=== PATIENT | male | born 1930 | race Hispanic/Latino ===

== ENCOUNTER 2020-11-03 00:45 | Inpatient (IN) | payer OTHER ==
[2020-11-03] MEDS ORDERED: ACETAMINOPHEN 325 MG TABLET ONE (02:03)
[2020-11-03 02:08] LABS: Absolute Lymphocytes (CBC) 0.6 K/uL (0.7-4.9); Basophils % 0.4 % (0-1.3); Hematocrit 37.6 % (39.6-49.0); Lymphocytes % 5.4 % (15.3-44.8); MPV 7.8 fL (7.6-11.3)
[2020-11-03 02:11] LABS: Protime INR 1.34
[2020-11-03 02:43] LABS: ALT/SGPT 22 U/L (12-78); AST/SGOT 14 U/L (15-37); Alkaline Phosphatase 88 U/L (45-117); BUN Blood Urea Nitrogen 22 mg/dL (7-18); Bicarbonate 23 mmol/L (21-32); Bilirubin Direct 0.3 mg/dL (0-0.2); Bilirubin Total 1.3 mg/dL (0.2-1.0); Glucose Level 133 mg/dL (74-106); Magnesium 2.1 mg/dL (1.8-2.4); NT PRO-BNP 247 pg/mL (<450); Potassium 3.9 mmol/L (3.5-5.1); Protein, Total 6.8 g/dL (6.4-8.2); Sodium Level 138 mmol/L (136-145); Troponin (Emerg Dept Use Only) 0.02 ng/mL (0.0-0.045)
--- NOTE | 2020-11-03 02:52 | ER ---
Nurse's Notes [facility] Name: Angel Romero Age: 89 yrs Sex: Male : 1930 Arrival Date: 11/03/2020 Time: 00:51 Bed 5 Private MD: Diagnosis: Fever, unspecified;Altered Mental Status;Urinary tract infection, site not specified Presentation: 11/03 00:15 Initial Sepsis Screen: Does the patient meet any 2 criteria? No. Patient's initial bb sepsis screen is negative. Does the patient have a suspected source of infection? Yes: Dysuria/Frequency/Urgency/UTI. Risk Assessment: Do you want to hurt yourself or someone else? Patient reports no desire to harm self or others. Onset of symptoms was November 02, 2020. 00:15 Acuity: LIZ 2 bb 01:15 Chief complaint: Patient's son or daughter states: pt went to the dentist at approx bb 1430 yesterday but at around 1700 they realized he was missing and pt was found driving up highway and was in [place]. Family states pt has not had this type of episode in the past. Coronavirus screen: At this time, the client does not indicate any symptoms associated with coronavirus-19. Ebola Screen: No symptoms or risks identified at this time. 01:15 Method Of Arrival: Ambulatory bb Historical: - Allergies: 01:27 No Known Allergies; bb - Home Meds: 01:27 eye drops for IOP [Active]; antibiotics for UTI [Active]; bb - PMHx: 01:27 None; bb - Immunization history:: Adult Immunizations up to date. - Social history:: Smoking status: Patient denies any tobacco usage or history of. Screenin:39 Abuse screen: Denies threats or abuse. Nutritional screening: No deficits noted. ea Tuberculosis screening: No symptoms or risk factors identified. Fall Risk None identified. Assessment: 01:39 General: Appears in no apparent distress. Behavior is calm, cooperative, appropriate ea for age. Pain: Denies pain. Neuro: Level of Consciousness is awake, alert, obeys commands, Oriented to person, place, situation. Cardiovascular: Patient's skin is warm and dry. Respiratory: Airway is patent Respiratory effort is even, unlabored, Respiratory pattern is regular, symmetrical. GI: Abdomen is non-distended. Derm: Skin is pink, warm \T\ dry. 02:38 Reassessment: Patient and/or family updated on plan of care and expected duration. Pain ea level reassessed. Patient is alert, oriented x 3, equal unlabored respirations, skin warm/dry/pink. 03:39 Reassessment: Patient and/or family updated on plan of care and expected duration. Pain ea level reassessed. Patient is alert, oriented x 3, equal unlabored respirations, skin warm/dry/pink. Report given to receiving nurse on second floor. Pt admitted to second floor. Pt left ED via wheelchair per ED nurse. Pt tolerating well. Accompanied by family. Vital Signs: 00:15 BP 141 / 56; Pulse 91; Resp 16 S; Temp 100.5(O); Pulse Ox 95% on R/A; Weight 95.25 kg bb (R); Height 5 ft. 7 in. (170.18 cm) (R); Pain 0/10; 02:38 BP 130 / 63; Pulse 88; Resp 18 S; Pulse Ox 96% on R/A; ad5 00:15 Body Mass Index 32.89 (95.25 kg, 170.18 cm) bb ED Course: 00:51 Patient arrived in ED. bp1 01:09 Peña Arguello MD is Attending Physician. mh7 01:15 Arm band placed on Patient placed in an exam room, on a stretcher, on pulse oximetry. bb Family accompanied patient. 01:27 Triage completed. bb 01:28 Patient has correct armband on for positive identification. Bed in low position. Call ea light in reach. Side rails up X2. 01:30 Inserted saline lock: 20 gauge in right wrist, using aseptic technique. Blood collected.ea 01:39 Rosemarie Mccall, DARLENE is Primary Nurse. ea 02:02 CT Head Brain wo Cont Sent. ad5 02:51 John Borrego MD is Hospitalizing Provider. mh7 03:11 Hospitalizing Provider role handed off by John Borrego MD mh7 03:11 Denny Mondragon MD is Hospitalizing Provider. mh7 03:29 No provider procedures requiring assistance completed. Patient admitted, IV remains in ea place. Administered Medications: 01:50 Drug: Tylenol 650 mg Route: PO; ad5 02:36 Follow up: Response: No adverse reaction ea 03:38 Drug: Rocephin (cefTRIAXone) 1 grams Route: IV; Rate: per protocol; Site: right wrist; ea 03:40 Follow up: Response: No adverse reaction; IV Status: Completed infusion ea Outcome: 02:51 Decision to Hospitalize by Provider. martina 03:29 Admitted to Med/surg accompanied by tech, via wheelchair, room 202, with chart, Report ea called to Diego COLON 03:29 Condition: stable 03:29 Instructed on the need for admit. 03:40 Patient left the ED. ea Signatures: Whit Verduzco RN RN Rosemarie Devries RN RN Nadya Elizabeth Maurice, MD MD [facility] Ramon Husain ad5
--- NOTE | 2020-11-03 02:52 | EDPHYS ---
Physician Documentation [facility] Name: Angel Romero Age: 89 yrs Sex: Male : 1930 Arrival Date: 11/03/2020 Time: 00:51 Bed 5 Private MD: ED Physician Peña Arguello HPI: 11/03 02:01 This 89 yrs old Male presents to ER via Ambulatory with complaints of Altered mh7 Mental Status. 02:01 The patient presents with confusion. Onset: The symptoms/episode began/occurred mh7 yesterday. Possible causes: unknown. 02:02 Associated signs and symptoms: Pertinent positives: confusion, Pertinent negatives: mh7 abdominal pain, agitation, ataxia, blurred vision, chest pain, combativeness, diaphoresis, diarrhea, dizziness, headache, lightheadedness, nausea, numbness, palpitations, seizure, shortness of breath, tingling, vertigo, vomiting, weakness. Current symptoms: In the emergency department the patient's symptoms have resolved, the patient is alert and fully oriented, has normal speech, has normal responsiveness, has no confusion. Patient's baseline: Neuro: alert and fully oriented, Motor: no deficits, Ambulation: walks without assistance, Speech: normal. Historical: - Allergies: 01:27 No Known Allergies; bb - Home Meds: :27 eye drops for IOP [Active]; antibiotics for UTI [Active]; bb - PMHx: 01:27 None; bb - Immunization history:: Adult Immunizations up to date. - Social history:: Smoking status: Patient denies any tobacco usage or history of. ROS: 02:02 Constitutional: Negative for fever, chills, and weight loss, Eyes: Negative for injury, mh7 pain, redness, and discharge, ENT: Negative for injury, pain, and discharge, Neck: Negative for injury, pain, and swelling, Cardiovascular: Negative for chest pain, palpitations, and edema, Respiratory: Negative for shortness of breath, cough, wheezing, and pleuritic chest pain, Abdomen/GI: Negative for abdominal pain, nausea, vomiting, diarrhea, and constipation, Back: Negative for injury and pain, : Negative for injury, bleeding, discharge, and swelling, MS/Extremity: Negative for injury and deformity, Skin: Negative for injury, rash, and discoloration, Neuro: Negative for headache, weakness, numbness, tingling, and seizure, Psych: Negative for depression, anxiety, suicide ideation, homicidal ideation, and hallucinations, Allergy/Immunology: Negative for hives, rash, and allergies, Endocrine: Negative for neck swelling, polydipsia, polyuria, polyphagia, and marked weight changes, Hematologic/Lymphatic: Negative for swollen nodes, abnormal bleeding, and unusual bruising. Exam: 02:02 Constitutional: This is a well developed, well nourished patient who is awake, alert, mh7 and in no acute distress. Head/Face: Normocephalic, atraumatic. Eyes: Pupils equal round and reactive to light, extra-ocular motions intact. Lids and lashes normal. Conjunctiva and sclera are non-icteric and not injected. Cornea within normal limits. Periorbital areas with no swelling, redness, or edema. Neck: Trachea midline, no thyromegaly or masses palpated, and no cervical lymphadenopathy. Supple, full range of motion without nuchal rigidity, or vertebral point tenderness. No Meningismus. Chest/axilla: Normal chest wall appearance and motion. Nontender with no deformity. No lesions are appreciated. Cardiovascular: Regular rate and rhythm with a normal S1 and S2. No gallops, murmurs, or rubs. Normal PMI, no JVD. No pulse deficits. Respiratory: Lungs have equal breath sounds bilaterally, clear to auscultation and percussion. No rales, rhonchi or wheezes noted. No increased work of breathing, no retractions or nasal flaring. Abdomen/GI: Soft, non-tender, with normal bowel sounds. No distension or tympany. No guarding or rebound. No evidence of tenderness throughout. Back: No spinal tenderness. No costovertebral tenderness. Full range of motion. Skin: Warm, dry with normal turgor. Normal color with no rashes, no lesions, and no evidence of cellulitis. MS/ Extremity: Pulses equal, no cyanosis. Neurovascular intact. Full, normal range of motion. Neuro: Awake and alert, GCS 15, oriented to person, place, time, and situation. Cranial nerves II-XII grossly intact. Motor strength 5/5 in all extremities. Sensory grossly intact. Cerebellar exam normal. Normal gait. Psych: Awake, alert, with orientation to person, place and time. Behavior, mood, and affect are within normal limits. Vital Signs: 00:15 BP 141 / 56; Pulse 91; Resp 16 S; Temp 100.5(O); Pulse Ox 95% on R/A; Weight 95.25 kg bb (R); Height 5 ft. 7 in. (170.18 cm) (R); Pain 0/10; 02:38 BP 130 / 63; Pulse 88; Resp 18 S; Pulse Ox 96% on R/A; ad5 00:15 Body Mass Index 32.89 (95.25 kg, 170.18 cm) bb MDM: 02:50 Differential Diagnosis: CVA, electrolyte abnormality, hypoglycemia, intracranial bleed, 7 pneumonia, UTI, volume depletion. Data reviewed: vital signs, nurses notes, lab test result(s), cardiac enzymes, CBC, electrolytes, EKG, radiologic studies, CT scan, plain films. Data interpreted: Pulse oximetry: on room air is 96 %. Interpretation: normal. Counseling: I had a detailed discussion with the patient and/or guardian regarding: the historical points, exam findings, and any diagnostic results supporting the discharge/admit diagnosis, lab results, radiology results, the need for further work-up and treatment in the hospital. Response to treatment: the patient's symptoms have markedly improved after treatment. 02:51 Patient medically screened. [facility] 11/03 01:39 Order name: Basic Metabolic Panel [facility] 11/03 01:39 Order name: CBC with Diff [facility] 11/03 01:39 Order name: LFT's [facility] 11/03 01:39 Order name: Magnesium [facility] 11/03 01:39 Order name: NT PRO-BNP [facility] 11/03 01:39 Order name: PT-INR [facility] 11/03 01:39 Order name: Troponin (emerg Dept Use Only) [facility] 11/03 01:39 Order name: AMMONIA [facility] 11/03 01:39 Order name: Influenza Screen (a \\T\\ B) [facility] 11/03 01:39 Order name: COVID-19 : Document "Date of Symptom Onset" if Symptomatic. [facility] 11/03 01:39 Order name: Lactate [facility] 11/03 01:39 Order name: ETOH Level [facility] 11/03 01:40 Order name: UDS [facility] 11/03 01:40 Order name: Acetaminophen [facility] 11/03 01:40 Order name: Salicylate [facility] 11/03 01:40 Order name: Blood Culture Adult (2) [facility] 11/03 01:40 Order name: Urine Culture [facility] 11/03 02:11 Order name: CORONAVIRUS [facility] 11/03 02:17 Order name: Protime (+INR); Complete Time: 02:26 EDMS 11/03 02:18 Order name: CBC with Automated Diff [facility] 11/03 02:18 Order name: Ammonia; Complete Time: 02:26 MS 11/03 02:42 Order name: Alcohol Serum/Plasma; Complete Time: 02:48 EDMS 11/03 02:45 Order name: Basic Metabolic Panel; Complete Time: 02:48 EDMS 11/03 02:45 Order name: Liver (Hepatic) Function; Complete Time: 02:48 [facility] 11/03 02:45 Order name: Troponin (Emerg Dept Use Only); Complete Time: 02:48 EDMS 11/03 02:45 Order name: NT PRO-BNP; Complete Time: 02:48 MS 11/03 02:45 Order name: Acetaminophen Level; Complete Time: 02:48 MS 11/03 02:45 Order name: Magnesium; Complete Time: 02:48 MS 11/03 02:45 Order name: Influenza Screen (A ; Complete Time: 02:48 [facility] 11/03 03:06 Order name: SARS-COV-2 RT PCR; Complete Time: 03:10 MS 11/03 01:39 Order name: XRAY Chest (1 view) [facility] 11/03 01:39 Order name: EKG; Complete Time: 01:40 [facility] 11/03 01:39 Order name: Cardiac monitoring; Complete Time: 02:02 [facility] 11/03 01:39 Order name: EKG - Nurse/Tech; Complete Time: 02:02 [facility] 11/03 01:39 Order name: IV Saline Lock; Complete Time: 02:02 [facility] 11/03 01:39 Order name: Labs collected and sent; Complete Time: 02:02 [facility] 11/03 01:39 Order name: O2 Per Protocol; Complete Time: 02:36 [facility] 11/03 01:39 Order name: O2 Sat Monitoring; Complete Time: 02:02 [facility] 11/03 01:39 Order name: CT Head Brain wo Cont; Complete Time: 02:48 [facility] 11/03 03:09 Order name: Lactate; Complete Time: 03:10 EDMS 11/03 03:18 Order name: Urine Dipstick-Ancillary; Complete Time: 03:32 EDMS Administered Medications: 01:50 Drug: Tylenol 650 mg Route: PO; ad5 02:36 Follow up: Response: No adverse reaction ea 03:38 Drug: Rocephin (cefTRIAXone) 1 grams Route: IV; Rate: per protocol; Site: right wrist; ea 03:40 Follow up: Response: No adverse reaction; IV Status: Completed infusion ea Disposition: 11/03/20 02:51 Hospitalization ordered by Denny Mondragon for Inpatient Admission. Preliminary diagnosis are Fever, unspecified, Altered Mental Status, Urinary tract infection, site not specified. - Bed requested for Telemetry/MedSurg (Inpatient). - Status is Inpatient Admission. ea - Condition is Stable. - Problem is new. - Symptoms have improved. Signatures: Dispatcher [employer] EDNY Susan Barber RN RN mw Ballard, Brenda, RN RN bb Stiven Phillips, SCROLL ASSEMBLER-C SCROLL ASSEMBLER-Cla1 Rosemarie Mccall RN RN ea Holmes, Maurice, MD MD [facility] Ramon Husain ad5 Corrections: (The following items were deleted from the chart) 03:11 02:51 Hospitalization Ordered by John Borrego MD for Inpatient Admission. Preliminary [facility] diagnosis is Fever, unspecified; Altered Mental Status. Bed requested for Telemetry/MedSurg (Inpatient). Status is Inpatient Admission. Condition is Stable. Problem is new. Symptoms have improved. [facility] 03:22 03:11 11/03/2020 02:51 Hospitalization Ordered by Denny Mondragon MD for Inpatient Admission. Preliminary diagnosis is Fever, unspecified; Altered Mental Status. Bed requested for Telemetry/MedSurg (Inpatient). Status is Inpatient Admission. Condition is Stable. Problem is new. Symptoms have improved. [facility] 03:33 03:22 11/03/2020 02:51 Hospitalization Ordered by Denny Mondragon MD for Inpatient [facility] Admission. Preliminary diagnosis is Fever, unspecified; Altered Mental Status. Bed requested for Telemetry/MedSurg (Inpatient). Status is Inpatient Admission. Condition is Stable. Problem is new. Symptoms have improved. mw 03:40 03:33 11/03/2020 02:51 Hospitalization Ordered by Denny Mondragon MD for Inpatient ea Admission. Preliminary diagnosis is Fever, unspecified; Altered Mental Status; Urinary tract infection, site not specified. Bed requested for Telemetry/MedSurg (Inpatient). Status is Inpatient Admission. Condition is Stable. Problem is new. Symptoms have improved. mh7
[2020-11-03 03:18] LABS: Urine Blood 1+ (Negative); Urine Glucose Negative (Negative); Urine Protein 1+ (Negative); Urine Specific Gravity 1.025 (1.005-1.030)
[2020-11-03] MEDS ORDERED: ONDANSETRON 4 MG/2 ML VIAL IV PRN (03:36)
[2020-11-03] MEDS ORDERED: ACETAMINOPHEN 500 MG TAB PO PRN (03:36)
[2020-11-03] MEDS ORDERED: CEFTRIAXONE/SWI 1gm 1 GM/10 ML SYR ONE (03:40)
[2020-11-03 03:55] LABS: Barbiturates NEGATIVE (NEGATIVE); Benzodiazepines NEGATIVE (NEGATIVE); Cocaine NEGATIVE (NEGATIVE); METHAMPHETAM NEGATIVE (NEGATIVE); Methadone NEGATIVE (NEGATIVE); Opiates NEGATIVE (NEGATIVE); Phencyclidine NEGATIVE (NEGATIVE); THC Cannibis NEGATIVE (NEGATIVE)
[2020-11-03] MEDS ORDERED: NA CHLORIDE 0.9% 50 ML ONE (03:58)
[2020-11-03 04:29] LABS: Blood Morphology Comment NOT SEEN (NOT SEEN); Platelet Estimate ADEQ
[2020-11-03] MEDS: D5 0.45 NS 1,000 ML IV SCH ×2 (04:53→17:11)
[2020-11-03 05:09] VITALS: BMI 34.2
[2020-11-03] MEDS: ALBUTEROL 2.5 MG/3 ML NEB SOL NEB PRN ×2 (08:05→13:10)
[2020-11-03] MEDS: IPRATROPIUM BROM 0.5MG/2.5ML NEB SCH ×3 (08:05→20:00)
[2020-11-03] MEDS ORDERED: DICYCLOMINE HCL 10 MG CAP PO PRN (14:32)
--- NOTE | 2020-11-03 16:14 | RAD REPORT ---
EXAM DESCRIPTION: Head Brain Wo Cont 11/03/2020 2:17 AM CDT CLINICAL HISTORY: 89 years, Male, AMS COMPARISON: None. FINDINGS: Multiple transaxial tomograms of the brain were obtained from the base of the skull to the vertex without contrast. 2-D multiplanar reformats and the coronal and sagittal plane were performed and reviewed. This exam was performed according to our departmental dose-optimization protocol, which includes auto mated exposure control, adjustment of the mA and/or kV according to patient size and/or use of iterat dona reconstruction technique. Brain parenchyma as well as the parekh and white matter differentiation demonstrate to be unremarkable. There is mild prominence of the sulci and gyri are corresponding to mild cerebral and cerebellar atr ophy. There is minimal periventricular white matter changes of microvascular ischemia. There is no mi dline shift and/or mass effect. There is no evidence for acute hemorrhage and/or infarction. Latera l ventricles and cisterns displace normal appearance. No intra or extra axial fluid collections wer e seen. The calvarium is intact with no evidence for fracture. The visualized portions of the paranas al sinuses and orbits demonstrate to be clear. IMPRESSION: No evidence for acute hemorrhage. Mild brain atrophy with minimal periventricular white matter changes of microvascular ischemia. Electronically signed by: Syd Logan MD 11/03/2020 2:18 AM CDT Due to temporary technical issues with the PACS/Fluency reporting system, reports are being signed by the in house radiologists without review as a courtesy to insure prompt reporting. The interpreting radiologist is fully responsible for the content of the report.
--- NOTE | 2020-11-03 16:14 | RAD REPORT ---
EXAM DESCRIPTION: Chest Single View 11/03/2020 2:17 AM CDT CLINICAL HISTORY: 89 years, Male, AMS COMPARISON: None FINDINGS: Single view of the chest was obtained portable. No prior films are available for compariso n. The cardiomediastinal silhouette demonstrate to be unremarkable. The heart is in the upper doyle l size. The thoracic aorta demonstrate minimal intimal calcification. The pulmonary vasculature Costo phrenic angles are sharp. No areas of consolidation or masses are seen. Is normal distribution. E xternal EKG leads within the inoel-is-jnxr limits diagnosis. The rest of the soft tissue and bony str uctures demonstrate to be unremarkable. IMPRESSION: No acute cardiopulmonary disease is seen. Electronically signed by: Syd Logan MD 11/03/2020 2:17 AM CDT Due to temporary technical issues with the PACS/Fluency reporting system, reports are being signed by the in house radiologists without review as a courtesy to insure prompt reporting. The interpreting radiologist is fully responsible for the content of the report.
--- NOTE | 2020-11-03 16:31 | EKG ---
Test Date: 2020-11-03 Test Time: 01:46:58 Shipping Point Inspector: ANNI MEASUREMENT RESULTS: Intervals: Rate: 88 SD: 168 QRSD: 114 QT: 372 QTc: 450 [place]: P: 56 SD: 168 QRS: -1 T: 37 INTERPRETIVE STATEMENTS: Normal sinus rhythm Right bundle branch block Abnormal ECG No previous ECG available for comparison Electronically Signed On 11-03-20 16:29:42 CDT by Collin Farr
--- NOTE | 2020-11-03 23:02 | PN ---
Date of Progress Note: 11/03/2020 The patient is doing quite well tonight. According to the family, just above the baseline, seems mary entated. He has had good intake and output. Since he gets some Bentyl, the diarrhea has stopped. H opefully, we will get a specimen for C diff. We will repeat the CBC and UA in the morning and has to lerated, possibly could be discharged. Hopefully, we will know what antibiotic to use by culture at that time and we will also do a renal ultrasound. Discussion was held for a referral to urologist. HR/MODL Voice ID: [id number] Report ID: [id number]
[2020-11-04] MEDS ORDERED: CEFTRIAXONE 1 GM/NS 50 ML 1 GM/50 ML BAG IV SCH (03:38)
[2020-11-04] MEDS: IPRATROPIUM BROM 0.5MG/2.5ML NEB SCH ×2 (03:45→08:25)
[2020-11-04 06:09] LABS: Absolute Lymphocytes (CBC) 0.8 K/uL (0.7-4.9); Basophils % 0.5 % (0-1.3); Hematocrit 37.8 % (39.6-49.0); Lymphocytes % 13.2 % (15.3-44.8); MPV 8.3 fL (7.6-11.3); RBC Red Blood Cell Count 4.21 M/uL (4.33-5.43)
[2020-11-04 06:23] LABS: ALT/SGPT 23 U/L (12-78); AST/SGOT 17 U/L (15-37); Albumin 2.9 g/dL (3.4-5.0); Alkaline Phosphatase 97 U/L (45-117); BUN Blood Urea Nitrogen 15 mg/dL (7-18); Bicarbonate 24 mmol/L (21-32); Bilirubin Total 0.8 mg/dL (0.2-1.0); Glucose Level 123 mg/dL (74-106); Potassium 3.6 mmol/L (3.5-5.1); Protein, Total 6.6 g/dL (6.4-8.2); Sodium Level 137 mmol/L (136-145)
[2020-11-04 07:57] LABS: Urine Appearance CLEAR (Clear); Urine Bilirubin NEGATIVE (Negative); Urine Blood NEGATIVE (Negative); Urine Color YELLOW (Yellow); Urine Glucose NEGATIVE (Negative); Urine Protein NEGATIVE (Negative)
[2020-11-04 08:04] LABS: Urine Microscopic Reflex ORDER UMIC
[2020-11-04 08:16] LABS: Urine Bacteria NONE SEEN /HPF (NONE SEEN); Urine RBC <5 /HPF (NONE SEEN)
[2020-11-04] MEDS: ALBUTEROL 2.5 MG/3 ML NEB SOL NEB PRN (08:25)
[2020-11-04] MEDS: TRAVOPROST OPTH SCH (09:00)
[2020-11-04] MEDS: CEFTRIAXONE/SWI 1gm 1 GM/10 ML SYR IV SCH (10:13)
--- NOTE | 2020-11-04 10:25 | RAD REPORT ---
EXAM DESCRIPTION: US - Renal Ultrasound-Complete - 11/04/2020 10:07 am CLINICAL HISTORY: uti with sepsis Flank pain COMPARISON: No comparisons FINDINGS: Both kidneys are normal in size, shape and echotexture. The right kidney measures 11.6 x 5.4 x 5.4 cm. No hydronephrosis, focal mass or perinephric fluid. The left kidney measures 12.9 x 6.3 x 5.3 cm. No hydronephrosis, focal mass or perinephric fluid. Lef t renal cysts are present, largest measuring 3.9 x 3.4 cm The urinary bladder is incompletely distended without gross abnormality seen. Prominent prostate glan d. IMPRESSION: Benign-appearing left renal cyst, otherwise negative study. Prostate gland is prominent and projects into the bladder base.
[2020-11-04] MEDS ORDERED: IPRATROPIUM BROM 0.5MG/2.5ML NEB PRN (13:19)
--- NOTE | 2020-11-04 19:39 | PN ---
Date of Progress Note: 11/04/2020 The patient states he is also having some urinary tract symptoms with some dysuria and discomfort and some obvious frequency. He states his bowel movements were back to normal as far as his diarrhea is concerned, but he notes some quite dark and possibly black on occasion. We will evaluate this with stool guaiac; however, his goals H and H are stable. According to the family, he still has some conf usional episodes and he is not quite back to baseline. He is mobile. We will obtain an MRI in the a .m. and give him 1 more IV antibiotic dose since his UA is negative responsive and decide which oral antibiotic to use at the time of discharge, refer him to urologist next week for possible procedure. HR/MODL Voice ID: [id number] Report ID: [id number]
[2020-11-05] MEDS: MORPHINE 2 MG/ML SYR IV PRN ×2 (04:06→09:24)
[2020-11-05 06:48] LABS: Absolute Lymphocytes (CBC) 0.6 K/uL (0.7-4.9); Basophils % 0.2 % (0-1.3); Hematocrit 35.5 % (39.6-49.0); Lymphocytes % 12.6 % (15.3-44.8); MPV 7.5 fL (7.6-11.3); RBC Red Blood Cell Count 4.01 M/uL (4.33-5.43)
[2020-11-05 06:54] LABS: BUN Blood Urea Nitrogen 16 mg/dL (7-18); Bicarbonate 26 mmol/L (21-32); Glucose Level 109 mg/dL (74-106); Potassium 3.6 mmol/L (3.5-5.1); Sodium Level 139 mmol/L (136-145)
[2020-11-05] MEDS: TRAVOPROST OPTH SCH (09:00)
[2020-11-05] MEDS: CEFTRIAXONE/SWI 1gm 1 GM/10 ML SYR IV SCH (09:23)
--- NOTE | 2020-11-05 09:54 | RAD REPORT ---
EXAM DESCRIPTION: MRI - Brain W/Wo Cont - 11/05/2020 7:32 am CLINICAL HISTORY: Confusion COMPARISON: head CT November 03, 2020 TECHNIQUE: Axial, sagittal, and coronal magnetic images of the brain were obtained. 20 cc MultiHance administered intravenously FINDINGS: Mild signal within periventricular, deep and subcortical white matter probably ischemic ch anges secondary to small vessel disease The ventricles are normal in caliber. Diffusion-weighted/ ADC mapping sequences do not demonstrate evidence of an acute infarction. No abnormal enhancement within the brain is seen. An extra-axial fluid collection is not noted. Fluid within the sinuses/mastoids is not seen IMPRESSION: No acute intracranial abnormality displayed
[2020-11-05] MEDS ORDERED: TRAMADOL HCL 50 MG TAB PO PRN (10:20)
[2020-11-05 12:35] LABS: Urine Appearance CLEAR (Clear); Urine Bilirubin NEGATIVE (Negative); Urine Blood TRACE (Negative); Urine Color YELLOW (Yellow); Urine Glucose NEGATIVE (Negative); Urine Protein 1+ (Negative)
[2020-11-05 13:22] LABS: Urine Microscopic Reflex ORDER UMIC
[2020-11-05 13:33] LABS: Urine RBC <5 /HPF (NONE SEEN)
[2020-11-05 13:34] LABS: Urine Bacteria <20 /HPF (NONE SEEN); Urine Mucus 1+ /HPF (NONE SEEN)
[2020-11-05] MEDS ORDERED: SMZ./TMP. 800/160 MG TABLET PO ONE (14:30)
[2020-11-05 17:56] LABS: Urine Appearance CLEAR (Clear); Urine Bilirubin NEGATIVE (Negative); Urine Blood 3+ (Negative); Urine Color YELLOW (Yellow); Urine Glucose NEGATIVE (Negative); Urine Protein NEGATIVE (Negative); Urine Specific Gravity <=1.005 (1.005-1.030); Urine Urobilinogen 0.2 mg/dL (0.2-1.0); Urine pH 5.5 (5.0-7.0)
[2020-11-05 17:57] LABS: Urine Microscopic Reflex ORDER UMIC
[2020-11-05 18:25] LABS: Urine Bacteria <20 /HPF (NONE SEEN); Urine RBC <5 /HPF (NONE SEEN)
--- NOTE | 2020-11-05 19:01 | PN ---
Date of Progress Note: 11/05/2020 The patient has had intermittent episodes of significant confusion. He has increased urgency. He st ates now there was some discomfort when he voids which has only been a small amount. E coli was cult ured. However, I think the befits of a catheter outweigh the possibility of infection. Cultures are available, therefore we will add Bactrim to the regimen. Continue on his Rocephin and a Alejandro will be inserted. Consultation obtained with a urologist who unfortunately is not present and depending o n the response of his blood pressure to the insertion of the Alejandro, this possibly may need to be addr essed as well as in the past as he has not either had any urinary retention and/or blood pressure pro blems. As mentioned depending on the results once the catheterization and Alejandro was inserted, we kiki l continue monitoring. HR/MODL Voice ID: [id number] Report ID: [id number]
[2020-11-05] MEDS: SMZ./TMP. 800/160 MG TABLET PO SCH (20:54)
[2020-11-06] MEDS: CEFTRIAXONE/SWI 1gm 1 GM/10 ML SYR IV SCH (08:56)
[2020-11-06] MEDS: SMZ./TMP. 800/160 MG TABLET PO SCH ×2 (08:58→20:29)
[2020-11-06] MEDS: TRAVOPROST OPTH SCH (08:59)
[2020-11-06] MEDS ORDERED: ACETAMINOPHEN 325 MG TABLET PO PRN (09:00)
[2020-11-06 13:25] LABS: C.diff Antigen/Toxin Ag neg : Tox neg (NEG : NEG)
[2020-11-06] MEDS ORDERED: CEFDINIR 300 MG CAP PO SCH (15:00)
--- NOTE | 2020-11-06 15:14 | PN ---
Date of Progress Note: 11/06/2020 The patient feels significantly better. Since the catheter has been inserted, he has a significant o utput. Did complain last night of some, what he felt, was spasm or irritation in the area. He has n ot been mobilized. We will consult PT to do this. His blood counts are stable. His blood pressure is stable. We will discontinue the Rocephin and convert to oral cephalosporin. His cultures are neg ative. Perhaps if he does well on the oral medication, could be discharged with a catheter and follo w up with the urologist in the next day or so. HR/MODL Voice ID: [id number] Report ID: [id number]
[2020-11-07] MEDS ORDERED: CEFDINIR 300 MG CAP PO SCH (09:00)
[2020-11-07] MEDS: TRAVOPROST OPTH SCH (09:00)
[2020-11-07] MEDS: SMZ./TMP. 800/160 MG TABLET PO SCH (09:14)
[2020-11-07 10:42] VITALS: O2SAT 97
[2020-11-07 12:53] VITALS: BP 128/60; TEMP 98.3
--- NOTE | 2020-11-07 16:54 | PN ---
Date of Progress Note: 11/07/2020 The patient is feeling much better today. He is up and about, taking shower. Good intake and output . The patient states he is hungry, having no pain. Good output in his Alejandro. Therefore, we will di scharge him on Bactrim twice a day and cefdinir 600 mg a day and set up an appointment with the [facility] for this coming week. We will send him home with the Alejandro. HR/MODL Voice ID: [id number] Report ID: [id number]
--- NOTE | 2020-11-08 07:49 | HP ---
Date of Admission: 11/03/2020 Entrance Complaint: Chills, fever, general malaise, confusion. History Of Present Illness: The patient states he has urinary tract infection back approximately a w [place] to 10 days ago when he was placed on low-dose Cipro, similar to an episode he had in June, [facility] he responded really well. However, on this occasion, obviously did not. He had an episode of ex cessive confusion per him, where he was driving and left home and actually family called the police a nd they did trace him down. He was febrile and toxic, and they brought him to the emergency room, [facility] a diagnosis of acute UTI was made, and he was admitted. Past History: Considering his age, the patient has been in excellent health, on minimal medication. Has had some episodes of urinary tract problems in the past and has been seen by Urology a number of years ago. He had been on various medications, however, until the June episode, which as I say, responded really well to antibiotics and had been doing quite well. Family History: Noncontributory. Social History: He is a nonsmoker and nondrinker. Physical Examination: General: When seen, the patient was afebrile. Vital Signs: Stable. He was minimally disorientated. Head and Neck: Normocephalic. Pupils equal to light and accommodation. Fundi negative. Trachea mi dline. Thyroid not palpable. ENT: Negative. Chest: Clear to P and A. Cardiovascular: PMI in midclavicular line. Heart sounds normal. Peripheral pulses are present and equal bilaterally. Abdomen: Minimal suprapubic discomfort. No guarding, rebound, tenderness, or rigidity. Bowel sound s are normal. Extremities: Moderately dehydrated. Good tone and movement bilaterally. Reflexes physiologic. Rectal: Deferred. Impression: Urinary tract infection with sepsis, altered mental status, dehydration. Plan: The patient will be admitted and placed on IV fluids. IV antibiotics will also be utilized, a nd depending on the result, further evaluation will be in consideration. HR/MODL Voice ID: [id number]
== END 2020-11-07 15:29 | disposition home or self-care (01) | DRG 871 ==
LOC: ER 00:45 → 2ND 03:35
PROVIDERS: ADMIT Family Medicine; ATTEND Family Medicine
DX: A41.9 Sepsis, unspecified organism (principal); G92 Toxic encephalopathy; N39.0 Urinary tract infection, site not specified; B96.20 Unspecified Escherichia coli [E. coli] as the cause of diseases classified elsewhere; E86.0 Dehydration; Z20.822 Contact with and (suspected) exposure to COVID-19
CPT/HCPCS: 36415; 70450; 70553; 71045; 76770; 80048; 80053; 80076; 80307; 80320; 80329; 81003; 81015; 82140; 82274; 82947; 83605; 83735; 83880; 84484; 85025; 85610; 87040; 87077; 87086; 87088; 87186; 87324; 87449; 87804; 93005; 94640; 94760; 96374; 97116; 97162; 99285; A9577; J0696; J2270; J7799; U0003